=== PATIENT | female | born 1965 | race Native Hawaiian/Other Pacific Islander ===

== ENCOUNTER 2018-01-26 07:45 | Observation (INO) | payer MEDICAID ==
--- NOTE | 2018-01-24 12:24 | Anesthesia Consultation ---
Anesthesia Consult and Med Hx Date of service: 01/24/18 - Airway Anesthetic Teeth Evaluation: Good, Crowns (upper incisors), Bridges ROM Head & Neck: Adequate Mental/Hyoid Distance: Adequate Mallampati Class: Class III Intubation Access Assessment: Probably Good - Pulmonary Exam CTA: Yes - Cardiac Exam Cardiac Exam: RRR - Pre-Operative Health Status Proposed Anesthetic Plan: General - Pulmonary Hx Smoking: No COPD: No - Cardiovascular System Hx Hypertension: No - Central Nervous System Hx Back Pain: No Hx Psychiatric Problems: No - Gastrointestinal Hx Gastroesophageal Reflux Disease: Yes (rare Tums to control) - Endocrine Hx Hypothyroidism: Yes - Other Systems Hx Alcohol Use: No Hx Cancer: Yes
[2018-01-24 13:23] LABS: Basophils % (Auto) 0.6 % (0.0-1.8); Eosinophils # (Auto) 0.1 K/mm3 (0.0-0.4); Eosinophils % (Auto) 2.2 % (0.0-4.3); Hemoglobin 13.1 gm/dl (10.1-14.3); Lymphocytes # (Auto) 1.7 K/mm3 (1.2-5.4); Lymphocytes % (Auto) 29.2 % (13.4-35.0); Mean Corpuscular HGB Conc 34 % (30-34); Mean Corpuscular Hemoglobin 33 pg (28-32); Mean Corpuscular Volume 95 fl (79-97); Monocytes # (Auto) 0.5 K/mm3 (0.0-0.8); Monocytes % (Auto) 8.2 % (0.0-7.3); Platelet Count 273 K/mm3 (140-440); Red Blood Count 4.02 M/mm3 (3.65-5.03); Red Cell Distribution Width 12.6 % (13.2-15.2)
--- NOTE | 2018-01-26 07:09 | History and Physical Report ---
History of Present Illness Date of examination: 01/26/18 Date of admission: 01/26/2018 Chief complaint: Pelvic pain History of present illness: 53y/o with a personal history of breast carcinoma. She presents with a complaint of pelvic pain. She has anxiety involving her risk of ovarian cancer with her significant family history of ovarian and colon carcinoma. She elects for definitive surgical management. Pelvic ultrasound was unremarkable. Past History Past Medical History: high cholesterol, thyroid disease, other (breast carcinoma ; ) Past Surgical History: appendectomy, other (breast lumpectomy) Social history: - Obstetrical History : 2 Para: 2 Hx # Term Pregnancies: 2 Number of Pregnancies: 0 Spontaneous Abortions: 0 Induced : 0 Number of Living Children: 2 Medications and Allergies Allergies Allergy/AdvReac Type Severity Reaction Status Date / Time morphine Allergy Rash Verified 01/21/18 16:43 Penicillins Allergy Rash Verified 01/21/18 16:43 Home Medications Medication Instructions Recorded Confirmed Last Taken Type Levothyroxine [Synthroid] 88 mcg PO QAM 01/21/18 01/21/18 Unknown History Simvastatin 20 mg PO DAILY 01/21/18 01/21/18 Unknown History Active Meds: Active Medications Sodium Chloride (Nacl 0.9% 1000 Ml) 1,000 mls @ 42 mls/hr IV DIRECT MAKENNA Review of Systems All systems: negative Genitourinary: pelvic pain - Vital Signs Vital signs: Vital Signs Temp Pulse Resp BP 97.9 F 64 16 106/68 01/24/18 11:55 01/24/18 11:55 01/24/18 11:55 01/24/18 11:55 Temp Pulse Resp BP Pulse Ox 97.9 F 64 16 106/68 01/24/18 11:55 01/24/18 11:55 01/24/18 11:55 01/24/18 11:55 - Physical Exam Breasts: Positive: deferred Cardiovascular: Regular rate Lungs: Positive: Clear to auscultation Abdomen: Positive: normal appearance Results Result Diagrams: 01/24/18 12:00 All other labs normal. Assessment and Plan - Patient Problems (1) Pelvic pain Status: Acute Plan to address problem: proceed with a robotic hysterectomy/BSO (2) Personal history of breast cancer Status: Acute
[~2018-01-26 07:45] MED LIST: CLEOCIN 600 MG/50 mL 600 MG/50 ML BAG IV SCH; GARAMYCIN 120 MG in NACL 0.9% 100 ML IV SCH; NACL 0.9% 1000 ML 1,000 ML IV SCH; PEPCID IV NR
[2018-01-26] MEDS ORDERED: GARAMYCIN/NS 120MG/100ML 120 MG/100 ML BAG IV ONE (08:00)
[2018-01-26] MEDS ORDERED: DILAUDID IV PRN (08:33)
[2018-01-26] MEDS ORDERED: ZOFRAN IV PRN ×2 (08:33→12:48)
[2018-01-26] MEDS ORDERED: DEMEROL IV PRN (08:33)
--- NOTE | 2018-01-26 08:33 | Anesthesia Day of Surgery ---
Anesthesia Day of Surgery - Day of Surgery Patient Examined: Yes Patient H&P Reviewed: Yes Patient is NPO: Yes
[2018-01-26] MEDS ORDERED: SUBLIMAZE IV NR (08:38)
[2018-01-26] MEDS ORDERED: VERSED IV NR (09:00)
[2018-01-26] MEDS ORDERED: GARAMYCIN 120 MG in NACL 0.9% 100 ML IV NR (09:45)
[2018-01-26] MEDS ORDERED: MARCAINE 0.5% 60 ML INFILTRATI ONE (10:11)
[2018-01-26] MEDS ORDERED: DILAUDID ONE (10:59)
[2018-01-26] MEDS ORDERED: ZEMURON IV ONE (10:59)
[2018-01-26] MEDS ORDERED: XYLOCAINE MPF 2% ONE (10:59)
[2018-01-26] MEDS ORDERED: DIPRIVAN 10 MG/ML IV ONE (11:00)
[2018-01-26] MEDS ORDERED: THROMBIN (BOVINE) TP ONE ×2 (11:05→12:34)
[2018-01-26] MEDS ORDERED: NEOSPORIN GU IR ONE ×2 (11:05→12:32)
[2018-01-26] MEDS ORDERED: GELFOAM POWDER 1GM MM ONE ×2 (11:05→12:34)
[2018-01-26] MEDS ORDERED: ZOFRAN ONE (12:29)
[2018-01-26] MEDS ORDERED: DECADRON ONE (12:29)
[2018-01-26] MEDS ORDERED: NACL 0.9% IR ONE ×2 (12:32)
[2018-01-26] MEDS ORDERED: NEOSTIGMINE ONE (12:35)
[2018-01-26] MEDS ORDERED: ROBINUL ONE (12:35)
[2018-01-26] MEDS ORDERED: NACL 0.9% 1000 ML 1,000 ML ONE (12:41)
--- NOTE | 2018-01-26 12:46 | Operative Report ---
Operative Report Operative Report: Date of surgery: 01/26/2018 Preoperative diagnoses: Pelvic pain; personal history of breast carcinoma Postoperative diagnoses: Same as above Procedure: Robotic hysterectomy and bilateral salpingo-oophorectomy Surgeon: Shea Hines M.D. Manager Business Planning: Cynthia Cooper Anesthesia: Gen. endotracheal anesthesia Estimated blood loss: 100milliliters Pathology: Uterus, cervix, bilateral tubes and ovaries Indication: 53-year-old 002 with a history of pelvic pain. The patient has a history of breast carcinoma and a significant family history for ovarian and colon cancer. The patient has elected for prophylactic oophorectomy Procedure: The patient was taken to the operating room and given general endotracheal anesthesia without complication. She is prepped and draped in a normal sterile fashion. A bivalve speculum was placed in the patient's vagina and a single- tooth tenaculum placed on the anterior lip of the cervix. The uterus was sounded with the uterine sound. A [employer] uterine manipulator was placed in the bivalve speculum was then removed. Attention was then turned to the patient's abdomen where a 12 millimeter supra umbilical skin incision was then made. A Veress needle was placed and peritoneal entry was verified water-filled syringe. Insufflation of the peritoneal cavity was performed with CO2 gas. The 12 mm trocar was then placed under direct visualization. An additional 8 mm trocar was placed on the patient's left and right lateral side just opposite of the supraumbilical trocar. An additional 5 mm right lateral trocar was then placed as the accessory port. The [employer] device was used to close the fascia of the 12 mm incision. General survey of the patient's abdomen and pelvis revealed a normal size uterus tubes and ovaries. There was evidence of omental and bowel adhesions to the right pelvic sidewall where her previous appendectomy had occurred. The adhesions did not hinder the procedure therefore no lysis of adhesions were performed. The patient was then placed in steep Trendelenburg. The da Kayleigh robot was then engaged. A fenestrated forcep was placed in arm 2 and a vessel sealer was placed in arm 1. The surgeon then transferred to the surgical console. The infundibulopelvic ligament was then isolated on the right. The vessel sealer was used to coagulate the ligament which was then transected. The tube and ovary were transected from the supply. The round ligament was then coagulated and transected also. The vesicouterine peritoneum was then entered from the patient 's right side. The uterine vessels were then coagulated with the vessel sealer. The vessels were then transected . Attention was then turned to the patient's left side where the infundibulopelvic ligament and mesosalpinx were again isolated coagulated and transected. The vesical peritoneum was then entered from the left and joined in the midline. Peritoneum was reflected off of the lower uterine segment. Uterine vessels were then coagulated and then transected. The blood supply to the uterus was adequately contained, a posterior colpotomy was made. The V care ring was visualized. Posterior colpotomy was created with the monopolar scissors. The incision was continued circumferentially until anterior colpotomy was made. The cervix and uterus were amputated from the vaginal cuff. The uterus was then removed along with the tubes and ovaries bilaterally through the vagina and a warm laparotomy sponge was placed and maintain the pneumoperitoneum. The vaginal cuff was then closed in a running fashion with V lock suture. Irrigation of the pelvis was performed. Gelfoam with thrombin was applied to the incision. The skin was then reapproximated with 4-0 Monocryl. The tissue was sent to pathology which included the cervix, uterus, tubes and ovaries. The patient was then successfully extubated. She was then taken to the recovery room in stable condition. All sponge laps and needle counts were correct x2.
[2018-01-26] MEDS ORDERED: NARCAN 0.4 MG/1 ML IV PRN (12:47)
[2018-01-26] MEDS ORDERED: MOTRIN PO PRN (12:48)
[2018-01-26] MEDS ORDERED: TYLENOL PO PRN (12:48)
[2018-01-26] MEDS ORDERED: MILK OF MAGNESIA PO PRN (12:48)
[2018-01-26] MEDS ORDERED: DILAUDID PCA 6MG/30ML IV SCH (13:00)
[2018-01-26] MEDS: TORADOL IV SCH ×2 (13:36→19:28)
--- NOTE | 2018-01-26 14:54 | Post Anesthesia Evaluation ---
- Post Anesthesia Evaluation Patient Participated: Yes Airway Patent: Yes Stable Respiratory Function: Yes Nausea/Vomiting: No Temp > 96.8F: Yes Pain Manageable: Yes Adequeate Hydration: Yes Anesthesia Complications: No Block Receding Appropriately: Not Applicable
[2018-01-26] MEDS: D5LR 1,000 ML IV SCH ×2 (17:20→23:18)
[2018-01-27] MEDS: TORADOL IV SCH ×2 (01:17→07:07)
[2018-01-27 04:22] LABS: Hematocrit 34.5 % (30.3-42.9); Hemoglobin 11.4 gm/dl (10.1-14.3)
[2018-01-27] MEDS: D5LR 1,000 ML IV SCH (05:53)
[2018-01-27] MEDS: PERCOCET 5/325 PO PRN ×2 (11:35→17:43)
--- NOTE | 2018-01-27 12:56 | Progress Note ---
Assessment and Plan - Patient Problems (1) Pelvic pain Current Visit: No Status: Acute Plan to address problem: The patient is doing well postoperatively Discharge home (2) Personal history of breast cancer Current Visit: No Status: Acute Subjective - Subjective Date of service: 01/27/18 Interval history: The patient reports being able to void after removal of Flores. She is tolerating a regular diet. Her pain is being well controlled. Patient reports: appetite normal, voiding normally, pain well controlled, flatus Objective - Vital Signs Latest vital signs: Vital Signs Temp Pulse Resp BP BP Pulse Ox 01/27/18 08:33 98.7 F 63 16 103/60 94 01/27/18 07:07 16 01/27/18 04:05 98.0 F 70 18 97/56 01/27/18 02:02 20 01/27/18 01:47 18 01/27/18 01:17 18 01/27/18 00:00 98.8 F 88 18 118/67 01/26/18 20:05 98.2 F 75 18 121/71 01/26/18 19:58 16 01/26/18 19:55 18 01/26/18 14:45 97.6 F 70 18 134/79 100 01/26/18 14:00 65 11 L 131/77 100 01/26/18 13:45 69 10 L 139/82 100 01/26/18 13:30 68 11 L 129/77 100 01/26/18 13:25 69 12 131/73 100 01/26/18 13:20 67 13 127/74 100 01/26/18 13:15 70 13 127/79 100 01/26/18 13:08 97.2 F L 99 H 20 126/81 100 Intake and Output 01/26/18 01/27/18 01/27/18 22:59 06:59 14:59 Intake Total 1568.750 480 Output Total 300 900 Balance -300 668.750 480 Intake: IV 1568.750 D5lr 1,000 ml @ 125 mls/ 1568.750 hr IV DIRECT MAKENNA Rx#: [id number] Oral 480 Output: Urine 300 900 Indwelling Catheter 300 900 Other: Total, Intake Amount 480 Total, Output Amount 300 900 Voiding Method Indwelling Catheter - Exam Breasts: Present: deferred Cardiovascular: Present: Regular rate Lungs: Present: Clear to auscultation Abdomen: Present: normal appearance, soft Incision: Present: normal
--- NOTE | 2018-01-27 12:58 | Discharge Summary ---
Providers - Providers Date of Admission: 01/26/18 12:48 Date of discharge: 01/27/18 Attending physician: MARIANGEL RODRIGUEZ Primary care physician: LEANNA VEGA Hospitalization Reason for admission: other (pelvic pain) Procedure: other (robotic hysterectomy and bilateral salpingo-oophorectomy) Incision: normal Discharge diagnosis: other (pelvic pain) Hospital course: The patient was admitted the day of surgery and underwent a robotic hysterectomy and bilateral salpingo-oophorectomy. Please see operative note for details of surgery. Postoperative course was uneventful. Condition at discharge: Good Disposition: [id number] TO HOME OR SELFCARE - Discharge Diagnoses (1) Pelvic pain Status: Acute (2) Personal history of breast cancer Status: Acute Plan - Discharge Medications Prescriptions: Docusate Sodium [Colace] 100 mg PO BID PRN #60 capsule PRN Reason: Constipation Ibuprofen [Motrin] 800 mg PO Q8HR PRN #60 tablet PRN Reason: Pain Oxycodone HCl/Acetaminophen [Percocet 7.5/325 mg] 1 each PO Q6HR PRN #45 tablet PRN Reason: Pain - Provider Discharge Summary Activity: no sex for 6 weeks, no heavy lifting 4 weeks, no strenuous exercise Diet: routine Instructions: routine Additional instructions: [] Smoking cessation referral if applicable(refer to patient education folder for contact #) [] Refer to [facility] Booklet Call your doctor immediately for: * Fever > 100.5 * Heavy vaginal bleeding ( >1 pad per hour) * Severe persistent headache * Shortness of breath * Reddened, hot, painful area to leg or breast * Drainage or odor from incision. * Keep incision clean and dry at all times and follow doctor's instructions regarding bathing/showering Scheduled follow-up in 4 weeks - Follow up plan
[2018-01-27 17:29] VITALS: BP 98/58
== END 2018-01-27 19:13 | disposition home or self-care (01) ==
LOC: OR 07:45 → OB 12:48
PROVIDERS: ADMIT Obstetrics & Gynecology; ATTEND Obstetrics & Gynecology
DX: R10.2 Pelvic and perineal pain (principal); E78.00 Pure hypercholesterolemia, unspecified; K21.9 Gastro-esophageal reflux disease without esophagitis; E03.9 Hypothyroidism, unspecified; Z85.3 Personal history of malignant neoplasm of breast; Z80.41 Family history of malignant neoplasm of ovary
CPT/HCPCS: 36415; 58552; 64450; 84703; 85014; 85018; 85025; 86850; 86900; 86901; 88307; 96374; 96375; 96376; A4217; A4649; G0378; J1100; J1170; J1580; J1885; J2250; J2405; J2704; J2710; J3010; J7030; J7121; S2900

== ENCOUNTER 2018-03-03 12:11 | Emergency (ER) | payer MEDICAID ==
[2018-03-03 13:35] VITALS: BP 115/73
[2018-03-03] MEDS ORDERED: MOTRIN PO ONE (14:55)
--- NOTE | 2018-03-03 14:59 | Emergency Department Report ---
Blank Doc - Documentation Documentation: Patient is a 53-year-old female presents with vaginal bleeding and dysuria. I will get blood work and urinalysis.
[2018-03-03 15:08] LABS: Basophils % (Auto) 0.4 % (0.0-1.8); Eosinophils # (Auto) 0.1 K/mm3 (0.0-0.4); Lymphocytes # (Auto) 1.9 K/mm3 (1.2-5.4); Mean Corpuscular HGB Conc 35 % (30-34); Mean Corpuscular Hemoglobin 32 pg (28-32); Mean Corpuscular Volume 93 fl (79-97); Monocytes # (Auto) 0.6 K/mm3 (0.0-0.8); Monocytes % (Auto) 7.7 % (0.0-7.3); Platelet Count 335 K/mm3 (140-440); Red Blood Count 4.32 M/mm3 (3.65-5.03); Red Cell Distribution Width 11.8 % (13.2-15.2)
[2018-03-03 15:28] LABS: BUN/Creatinine Ratio 16; Blood Urea Nitrogen 11 mg/dL (7-17); Calcium 9.3 mg/dL (8.4-10.2); Hemolysis Index 11
--- NOTE | 2018-03-03 17:24 | Emergency Department Report ---
ED General Adult HPI - General Chief complaint: Vaginal Bleeding Stated complaint: VAGINAL BLEEDING Time Seen by Provider: 03/03/18 14:58 Source: patient Mode of arrival: Ambulatory Limitations: Language Barrier - History of Present Illness Initial comments: Patient is a 53-year-old female presents with vaginal bleeding and dysuria. I will get blood work and urinalysis. Onset/Timin -: days(s) Location: genitals Radiation: non-radiation Severity scale (0 -10): 5 Quality: burning Consistency: intermittent Improves with: rest Worsens with: other (urination ) Associated Symptoms: denies: fever/chills, headaches, rash, shortness of breath , weakness Treatments Prior to Arrival: none - Related Data Home Medications Medication Instructions Recorded Confirmed Last Taken Levothyroxine [Synthroid] 88 mcg PO QAM 01/21/18 01/26/18 01/26/18 07:00 Simvastatin 20 mg PO DAILY 01/21/18 01/26/18 01/23/18 09:00 Previous Rx's Medication Instructions Recorded Last Taken Type Docusate Sodium [Colace] 100 mg PO BID PRN #60 capsule 01/27/18 Unknown Rx Ibuprofen [Motrin] 800 mg PO Q8HR PRN #60 tablet 01/27/18 Unknown Rx Oxycodone HCl/Acetaminophen 1 each PO Q6HR PRN #45 tablet 01/27/18 Unknown Rx [Percocet 7.5/325 mg] Acetaminophen [Tylenol Extra 1,000 mg PO QID PRN #30 tablet 03/03/18 Unknown Rx Strength] Cephalexin [Keflex] 500 mg PO Q12HR #14 cap 03/03/18 Unknown Rx Allergies Allergy/AdvReac Type Severity Reaction Status Date / Time morphine Allergy Rash Verified 01/21/18 16:43 Penicillins Allergy Rash Verified 01/21/18 16:43 ED Review of Systems ROS: Stated complaint: VAGINAL BLEEDING Other details as noted in HPI Constitutional: denies: chills, fever Eyes: denies: eye pain, eye discharge, vision change ENT: denies: ear pain, throat pain Respiratory: denies: cough, shortness of breath, wheezing Cardiovascular: denies: chest pain, palpitations Endocrine: no symptoms reported Gastrointestinal: denies: abdominal pain, nausea, vomiting Genitourinary: urgency, frequency. denies: dysuria, hematuria, discharge, abnormal menses, dyspareunia Musculoskeletal: denies: back pain, joint swelling, arthralgia Skin: denies: rash, lesions Neurological: denies: headache, weakness, paresthesias Psychiatric: denies: anxiety, depression Hematological/Lymphatic: denies: easy bleeding, easy bruising ED Past Medical Hx - Past Medical History Hx Hypertension: No Hx Congestive Heart Failure: No Hx Diabetes: No Hx Headaches / Migraines: Yes (migraines) Hx Asthma: No Hx COPD: No - Surgical History Hx Appendectomy: Yes - Social History Smoking Status: Never Smoker Substance Use Type: None - Medications Home Medications: Home Medications Medication Instructions Recorded Confirmed Last Taken Type Levothyroxine [Synthroid] 88 mcg PO QAM 01/21/18 01/26/18 01/26/18 07:00 History Simvastatin 20 mg PO DAILY 01/21/18 01/26/18 01/23/18 09:00 History Docusate Sodium [Colace] 100 mg PO BID PRN #60 capsule 01/27/18 Unknown Rx Ibuprofen [Motrin] 800 mg PO Q8HR PRN #60 tablet 01/27/18 Unknown Rx Oxycodone HCl/Acetaminophen 1 each PO Q6HR PRN #45 tablet 01/27/18 Unknown Rx [Percocet 7.5/325 mg] Acetaminophen [Tylenol Extra 1,000 mg PO QID PRN #30 tablet 03/03/18 Unknown Rx Strength] Cephalexin [Keflex] 500 mg PO Q12HR #14 cap 03/03/18 Unknown Rx ED Physical Exam - General Limitations: Language Barrier General appearance: alert, in no apparent distress - Head Head exam: Present: atraumatic, normocephalic - Eye Eye exam: Present: normal appearance - ENT ENT exam: Present: mucous membranes moist - Neck Neck exam: Present: normal inspection, full ROM. Absent: lymphadenopathy, thyromegaly - Respiratory Respiratory exam: Present: normal lung sounds bilaterally. Absent: respiratory distress, wheezes, rhonchi - Cardiovascular Cardiovascular Exam: Present: regular rate, normal rhythm. Absent: systolic murmur, diastolic murmur, rubs, gallop - GI/Abdominal GI/Abdominal exam: Present: soft, normal bowel sounds. Absent: distended, tenderness, guarding, rebound, rigid, organomegaly, mass, bruit, pulsatile mass , hernia - Rectal Rectal exam: Present: deferred - External exam: Present: other (exam deferred per patient ) - Extremities Exam Extremities exam: Present: normal inspection - Back Exam Back exam: Present: normal inspection, full ROM. Absent: tenderness, CVA tenderness (R), CVA tenderness (L), muscle spasm, paraspinal tenderness, vertebral tenderness, rash noted - Neurological Exam Neurological exam: Present: alert, oriented X3, CN II-XII intact, normal gait, reflexes normal - Psychiatric Psychiatric exam: Present: normal affect, normal mood - Skin Skin exam: Present: warm, dry, intact, normal color. Absent: rash ED Course Vital Signs 03/03/18 13:31 Temperature 98.4 F Pulse Rate 63 Respiratory 16 Rate Blood Pressure 115/73 O2 Sat by Pulse 97 Oximetry ED Medical Decision Making - Lab Data Result diagrams: 03/03/18 14:58 03/03/18 14:58 Laboratory Tests 03/03/18 03/03/18 03/03/18 14:58 14:58 16:19 WBC 7.3 RBC 4.32 Hgb 14.0 Hct 40.0 MCV 93 MCH 32 MCHC 35 H RDW 11.8 L Plt Count 335 Lymph % (Auto) 26.0 [place] % (Auto) 7.7 H Eos % (Auto) 2.0 Baso % (Auto) 0.4 Lymph # 1.9 [place] # 0.6 Eos # 0.1 Baso # 0.0 Seg Neutrophils % 63.9 Seg Neutrophils # 4.6 Sodium 137 Potassium 4.1 Chloride 99.5 Carbon Dioxide 27 Anion Gap 15 BUN 11 Creatinine 0.7 Estimated GFR > 60 BUN/Creatinine Ratio 16 Glucose 90 Calcium 9.3 Urine WBC (Auto) 2.0 Urine RBC (Auto) 1.0 U Epithel Cells (Auto) < 1.0 - Medical Decision Making cbc normal , ua: luek, wbc, small rbc, plan: tx for uti, keflex, follow with measurer Dr Cook tomorrow, h/h stable there is no vaginal bleeding, mild hematuria with voiding no cva tenderness no fever no flow hesitency no n/v no cva tenderness no likely renal stone . Critical care attestation.: If time is entered above; I have spent that time in minutes in the direct care of this critically ill patient, excluding procedure time. ED Disposition Clinical Impression: UTI (urinary tract infection) Qualifiers: Urinary tract infection type: acute cystitis Hematuria presence: without hematuria Qualified Code(s): N30.00 - Acute cystitis without hematuria Disposition: TO HOME OR SELFCARE Is pt being admited?: No Does the pt Need Aspirin: No Condition: Good Instructions: Urinary Tract Infection in Women (ED) Prescriptions: Acetaminophen [Tylenol Extra Strength] 1,000 mg PO QID PRN #30 tablet PRN Reason: Pain , Severe (7-10) Cephalexin [Keflex] 500 mg PO Q12HR #14 cap Referrals: PRIMARY CARE, [Primary Care Provider] - 3-5 Days Forms: Work/School Release Form(ED) Time of Disposition: 17:32
== END 2018-03-03 17:36 | disposition home or self-care (01) ==
LOC: ED 12:11
DX: N30.00 Acute cystitis without hematuria (principal)
CPT/HCPCS: 36415; 80048; 81015; 85025

== ENCOUNTER 2018-05-30 15:41 | Emergency (ER) | payer OTHER, MEDICAID ==
[2018-05-30 16:06] VITALS: BP 101/65
[2018-05-30] MEDS ORDERED: MOTRIN PO ONE (16:39)
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
== END 2018-05-30 18:50 | disposition home or self-care (01) ==
LOC: ED 15:41
DX: S13.4XXA Sprain of ligaments of cervical spine, initial encounter (principal); S20.211A Contusion of right front wall of thorax, initial encounter; S39.012A Strain of muscle, fascia and tendon of lower back, initial encounter; S66.911A Strain of unspecified muscle, fascia and tendon at wrist and hand level, right hand, initial encounter; G43.909 Migraine, unspecified, not intractable, without status migrainosus; E78.00 Pure hypercholesterolemia, unspecified; Z88.6 Allergy status to analgesic agent; Z88.0 Allergy status to penicillin; V89.2XXA Person injured in unspecified motor-vehicle accident, traffic, initial encounter; Y93.89 Activity, other specified; Y92.89 Other specified places as the place of occurrence of the external cause; Y99.8 Other external cause status
CPT/HCPCS: 71046; 72040; 72100; 99283